=== PATIENT | male | born 1985 | race African-American/Black ===

== ENCOUNTER 2016-12-17 11:59 | Emergency (ER) | payer OTHER ==
[~2016-12-17] VITALS: Ht 182.9 cm; Wt 93.0 kg
[2016-12-17 12:07] VITALS: BP 118/77; PULSE 102; RESP 20; TEMP 98.3
--- NOTE | 2016-12-17 13:11 | PD ---
HPI Chief Complaint: Foreign Body Time Seen by Provider: 12:36 Travel History International Travel<30 days: No Contact w/Intl Traveler<30days: No Traveled to known affect area: No History of Present Illness HPI Patient comes in under police custody for foreign body removal to his right cheek just superior to his right upper lip. Patient states he was running from police because he has warrants out for his arrest when they tased him causing taser probe to get stuck in his face. Patient reports his tetanus shot is up-to -date. Complaining of pain at the puncture site from the imelda describes as a sharp stabbing pain without radiation. Patient denies any other pain or medical complaints at this time. He denies anything making it better or worse. [facility] Past Medical History Asthma: Yes Tetanus Vaccination: Unknown ?: Not Past Surgical History Surgical History: No Previous Surgery Social History Alcohol Use: Yes Tobacco Use: No Substance Use: No Allergies-Medications (Allergen,Severity, Reaction): Coded Allergies: morphine (Verified Allergy, Unknown, 12/17/16) Reported Meds & Prescriptions Reported Meds & Active Scripts Active Augmentin (Amoxicillin-Clavulanate) 875-125 Mg Tab 1 Tab PO BID 10 Days Review of Systems Except as stated in HPI: all other systems reviewed are Neg Physical Exam Narrative GENERAL: Well-developed, overly nourished, in no acute distress, and non-ill appearing. SKIN: Foreign body noted right cheek just superior to the right upper lip attaches to the inner oral cavity there is no involvement of the lip itself or the vermilion border. HEAD: Atraumatic. Normocephalic. EYES: Pupils equal and round. EOMI. No scleral icterus. No injection or drainage. ENT: No nasal bleeding or discharge. Mucous membranes pink and moist. NECK: Trachea midline. Supple. No nuclear rigidity. RESPIRATORY: No accessory muscle use. No respiratory distress. MUSCULOSKELETAL: No obvious deformities. No clubbing. No cyanosis. No edema. Full range of motion. NEUROLOGICAL: Awake and alert. No obvious cranial nerve deficits. Motor grossly within normal limits. Normal speech. PSYCHIATRIC: Appropriate mood and affect; insight and judgment normal. Data Data Last Documented VS Vital Signs Date Time Temp Pulse Resp B/P (MAP) Pulse Ox O2 Delivery O2 Flow Rate FiO2 12/17/16 12:09 20 12/17/16 12:07 98.3 102 118/77 (91) [facility] Medical Decision Making Medical Screen Exam Complete: Yes Emergency Medical Condition: Yes Differential Diagnosis Foreign body, puncture wound, laceration, other Narrative Course Patient in no obvious distress upon re-evaluation. Patient was asked if they wanted to speak to my attending, which the patient did not wish to do at this time. Any questions/concerns in reference to patient diagnosis/condition discussed and clarified prior to patient's discharge. Reinforced sheer importance of close follow up with patient's primary physician or primary care clinic. Instructed patient to return to ED immediately, if symptoms return/ worsen. Patient showed understanding of above instructions. Further instructions and recommendations were detailed in discharge paperwork. Patient ambulated without difficulty out of ED at discharge in police custody. Procedures Procedure Narrative Verbal consent was obtained. Taser probe was cut and removed using wire cutters obtained from the OR. Patient tolerated procedure well. There is no complications. Patient reported immediate relief of his pain. Probe was given to the secretary of police in a sterile urine cup. Diagnosis Primary Impression: Foreign body (FB) in soft tissue Patient Instructions: General Instructions, Soft Tissue Foreign Body (ED) Additional Instructions: Follow-up with your primary care physician next week for evaluation. Take all medication as prescribed. Return to the emergency department if symptoms get worse. Med/Other Pt SpecificInfo: Prescription(s) given Scripts Amoxicillin-Clavulanate (Augmentin) 875-125 Mg Tab 1 TAB PO BID for Infection for 10 Days, #20 TAB 0 Refills Prov: Brielle Calzada MD 12/17/16 Disposition: 01 DISCHARGE HOME Condition: Stable Roshan Hoang Dec 17, 2016 13:11
[2016-12-17] MEDS ORDERED: AUGM875T3 PO (13:12)
== END 2016-12-17 13:23 | disposition home or self-care (01) ==
LOC: NEPK 11:59
DX: S01.84XA Puncture wound with foreign body of other part of head, initial encounter (principal); Y35.493A Legal intervention involving other sharp objects, suspect injured, initial encounter
CPT/HCPCS: 99283